=== PATIENT | female | born 1955 | race Caucasian/White ===

== ENCOUNTER → 2016-10-31 | Outpatient (CLI) | payer BC ==
[~2016-10-31] MED LIST: 00186-0372-20 IH; AFRIN NASAL SPR15 M1 NS; ALEVE 220MG220 MG PO; ALLEGRA 180MG180 MG PO; ASPIRIN 32325 MG/TAB PO; ASPIRIN 81M81 MG/TA2 PO; BENADRYL25 M2 PO; BYDUREON PEN2 MG SQ; COZAAR 50MG50 MG/TAB PO; FERROUS SU325 MG/TAB PO; FISH OIL 1000MG1 CAP PO; FLONASEALLERGY NS; GLUCOPHAGE500 MG/TAB PO; JANUVIA 100MG100 MG PO; LASIX 20MG TABL20 MG PO; LASIX 40MG TABL40 MG PO; LOPRESSOR 225 MG/TAB PO; MELATONIN5 M1 PO; NEXIUM 40MG40 MG PO; NITRO-DUR0.3 MG/PAT TD; NO HOME MEDICATIONS; NORCO 325 MG-51 TAB PO; PRILOSEC 20MG20 MG PO; QUALITY CHOI500 U/GM TP; SALINE MIST 4545 ML NS; SINGULAIR 110 MG/TAB PO; VITAMIN C500 MG PO; VOLTAREN GEL 1%1 TU TP; ZEASORB-AF21 TP; ZYRTEC 10MG10 MG PO; [UNRECOGNIZED DRUG - OTHER]; [UNRECOGNIZED DRUG - OTHER] PO
== END ==
LOC: SUN.DIA 08:15
DX: E11.65 Type 2 diabetes mellitus with hyperglycemia (principal); Z71.3 Dietary counseling and surveillance; I10 Essential (primary) hypertension
CPT/HCPCS: G0109

== ENCOUNTER → 2016-11-07 | Outpatient (CLI) | payer BC | LOC: SUN.DIA 14:29 | DX: E11.65 Type 2 diabetes mellitus with hyperglycemia (principal); Z71.3 Dietary counseling and surveillance; I10 Essential (primary) hypertension | CPT/HCPCS: G0109 ==

== ENCOUNTER → 2016-11-14 | Outpatient (CLI) | payer BC | LOC: SUN.DIA 11:58 | DX: E11.65 Type 2 diabetes mellitus with hyperglycemia (principal); Z71.3 Dietary counseling and surveillance; I10 Essential (primary) hypertension | CPT/HCPCS: G0109 ==

== ENCOUNTER 2016-11-21 08:21 | Day surgery (SDC) | payer BC ==
[~2016-11-21] VITALS: Ht 160 cm; Wt 89.9 kg
[~2016-11-21 08:21] MED LIST changes: -00186-0372-20 IH; -AFRIN NASAL SPR15 M1 NS; -ASPIRIN 81M81 MG/TA2 PO; -BENADRYL25 M2 PO; -BYDUREON PEN2 MG SQ; -FERROUS SU325 MG/TAB PO; -FISH OIL 1000MG1 CAP PO; -FLONASEALLERGY NS; -GLUCOPHAGE500 MG/TAB PO; -JANUVIA 100MG100 MG PO; -LASIX 20MG TABL20 MG PO; -NEXIUM 40MG40 MG PO; -NORCO 325 MG-51 TAB PO; -QUALITY CHOI500 U/GM TP; -SALINE MIST 4545 ML NS; -SINGULAIR 110 MG/TAB PO; -VITAMIN C500 MG PO; -VOLTAREN GEL 1%1 TU TP; -ZEASORB-AF21 TP; -ZYRTEC 10MG10 MG PO
[2016-11-21] MEDS ORDERED: LASIX 20MG TABL20 MG PO (08:46)
[2016-11-21] MEDS ORDERED: ASPIRIN 81M81 MG/TA2 PO (08:46)
[2016-11-21] MEDS ORDERED: ZEASORB-AF21 TP (08:50)
[2016-11-21] MEDS ORDERED: VOLTAREN GEL 1%1 TU TP (08:53)
[2016-11-21] MEDS ORDERED: BENADRYL25 M2 PO (08:53)
[2016-11-21] MEDS ORDERED: FLONASEALLERGY NS (08:53)
[2016-11-21] MEDS ORDERED: GLUCOPHAGE500 MG/TAB PO (08:54)
[2016-11-21] MEDS ORDERED: AFRIN NASAL SPR15 M1 NS (08:55)
[2016-11-21] MEDS ORDERED: SALINE MIST 4545 ML NS (08:55)
[2016-11-21] MEDS ORDERED: ZYRTEC 10MG10 MG PO (08:56)
[2016-11-21] MEDS ORDERED: JANUVIA 100MG100 MG PO (08:56)
[2016-11-21] MEDS ORDERED: NORCO 325 MG-51 TAB PO (08:57)
[2016-11-21] MEDS ORDERED: FISH OIL 1000MG1 CAP PO (08:57)
[2016-11-21] MEDS ORDERED: NEXIUM 40MG40 MG PO (08:57)
[2016-11-21] MEDS ORDERED: QUALITY CHOI500 U/GM TP (08:58)
[2016-11-21] MEDS ORDERED: SINGULAIR 110 MG/TAB PO (08:58)
[2016-11-21 09:15] VITALS: BP 148/85; PULSE 102; TEMP 98.2
[2016-11-21 10:30] VITALS: BP 131/62; PULSE 93; TEMP 98
[2016-11-21 10:45] VITALS: BP 134/74; PULSE 108
[2016-11-21 11:00] VITALS: BP 135/76; PULSE 94
[2016-11-21 11:15] VITALS: BP 137/77; PULSE 103
[2016-11-21 12:06] VITALS: BP 140/59; PULSE 93
== END 2016-11-21 11:55 | disposition home or self-care (01) ==
LOC: SDCO 08:21
DX: R06.00 Dyspnea, unspecified (principal); R05 Cough; R06.02 Shortness of breath
CPT/HCPCS: J0456; J2704; J2920; J7030; J7050; J7120

== ENCOUNTER → 2016-11-28 | Outpatient (CLI) | payer BC ==
[~2016-11-28] MED LIST changes: +00186-0372-20 IH; +AFRIN NASAL SPR15 M1 NS; +ASPIRIN 81M81 MG/TA2 PO; +BENADRYL25 M2 PO; +BYDUREON PEN2 MG SQ; +FERROUS SU325 MG/TAB PO; +FISH OIL 1000MG1 CAP PO; +FLONASEALLERGY NS; +GLUCOPHAGE500 MG/TAB PO; +JANUVIA 100MG100 MG PO; +LASIX 20MG TABL20 MG PO; +NEXIUM 40MG40 MG PO; +NORCO 325 MG-51 TAB PO; +QUALITY CHOI500 U/GM TP; +SALINE MIST 4545 ML NS; +SINGULAIR 110 MG/TAB PO; +VITAMIN C500 MG PO; +VOLTAREN GEL 1%1 TU TP; +ZEASORB-AF21 TP; +ZYRTEC 10MG10 MG PO
== END ==
LOC: SUN.DIA
DX: E11.65 Type 2 diabetes mellitus with hyperglycemia (principal); Z68.34 Body mass index [BMI] 34.0-34.9, adult; Z71.3 Dietary counseling and surveillance; I10 Essential (primary) hypertension
CPT/HCPCS: G0108; G0109; J7120

== ENCOUNTER 2017-05-08 12:10 | Day surgery (SDC) | payer BC ==
[2017-05-08] VITALS (8 sets, daily range): BP systolic 118–142; BP diastolic 63–87; PULSE 75–81; TEMP 97.9–98.6
[~2017-05-08] VITALS: Ht 160 cm; Wt 87.6 kg
[~2017-05-08 12:10] MED LIST changes: -00186-0372-20 IH; -BYDUREON PEN2 MG SQ; -FERROUS SU325 MG/TAB PO; -VITAMIN C500 MG PO
[2017-05-08] MEDS ORDERED: 00186-0372-20 IH (13:21)
[2017-05-08] MEDS ORDERED: BYDUREON PEN2 MG SQ (13:23)
[2017-05-08] MEDS ORDERED: SINGULAIR 110 MG/TAB PO (13:25)
[2017-05-08] MEDS ORDERED: FERROUS SU325 MG/TAB PO (13:26)
[2017-05-08] MEDS ORDERED: VITAMIN C500 MG PO (13:28)
== END 2017-05-08 19:55 | disposition home or self-care (01) ==
LOC: SDCO 12:10
DX: N20.1 Calculus of ureter (principal); J44.9 Chronic obstructive pulmonary disease, unspecified; I10 Essential (primary) hypertension; E11.9 Type 2 diabetes mellitus without complications; K21.9 Gastro-esophageal reflux disease without esophagitis; Z79.84 Long term (current) use of oral hypoglycemic drugs; Z83.3 Family history of diabetes mellitus; Z82.49 Family history of ischemic heart disease and other diseases of the circulatory system; Z80.52 Family history of malignant neoplasm of bladder; Z83.6 Family history of other diseases of the respiratory system
CPT/HCPCS: C1769; J1170; J1885; J1956; J2405; J2704; J3010; J7030; Q9967

== ENCOUNTER → 2017-10-09 | Outpatient (CLI) | payer BC ==
[~2017-10-09] MED LIST changes: +00186-0372-20 IH; +BYDUREON PEN2 MG SQ; +FERROUS SU325 MG/TAB PO; +VITAMIN C500 MG PO
== END ==
LOC: MC.RAD 14:08
DX: Z12.31 Encounter for screening mammogram for malignant neoplasm of breast (principal); R92.8 Other abnormal and inconclusive findings on diagnostic imaging of breast

== ENCOUNTER → 2017-11-08 | Outpatient (CLI) | payer BC | LOC: MC.RAD 12:51 | DX: N63.20 Unspecified lump in the left breast, unspecified quadrant (principal); N63.10 Unspecified lump in the right breast, unspecified quadrant; N64.89 Other specified disorders of breast ==

== ENCOUNTER → 2017-11-19 | Outpatient (CLI) | payer BC | LOC: MC.RAD 06:58 | DX: N63.11 Unspecified lump in the right breast, upper outer quadrant (principal); N63.21 Unspecified lump in the left breast, upper outer quadrant; N64.89 Other specified disorders of breast ==

== ENCOUNTER → 2019-07-09 | Outpatient (CLI) | payer MEDICARE, OTHER | LOC: MC.RAD 10:21 | DX: Z12.31 Encounter for screening mammogram for malignant neoplasm of breast (principal); N63.21 Unspecified lump in the left breast, upper outer quadrant ==

== ENCOUNTER 2019-11-13 09:33 | Day surgery (SDC) | payer MEDICARE, OTHER ==
[2019-11-13] VITALS (12 sets, daily range): BP systolic 99–146; BP diastolic 58–88; PULSE 69–79; TEMP 97.7
[~2019-11-13] VITALS: Ht 160 cm; Wt 86.9 kg
[~2019-11-13 09:33] MED LIST changes: +GLUCOPHAGE1000 MG PO; -GLUCOPHAGE500 MG/TAB PO
[2019-11-13 10:29] LABS: HEMATOCRIT 37.7 % (37.0-47.0); HEMOGLOBIN 12.2 g/dl (12.5-16.0); MEAN CELL VOLUME 92 fl (80.0-100.0); MEAN CORPUSCULAR HEMOGLOBIN 30 pg (27.0-31.0); MEAN CORPUSCULAR HGB CONC 32 g/dl (33.0-37.0); MEAN PLATELET VOLUME 9.1 fl (7.4-10.4); PLATELET COUNT 298 K/mm3 (130-400); RED BLOOD COUNT 4.11 M/mm3 (4.10-5.30); REDCELL DISTRIBUTION WIDTH-CV 14.6 % (11.5-14.5)
[2019-11-13 10:31] LABS: PROTHROMBIN TIME 11.8 SECONDS (9.7-12.8)
[2019-11-13 10:38] LABS: CALCIUM 8.5 mg/dL (8.4-10.2); CREATININE, serum 0.68 (0.52-1.25); POTASSIUM 3.3 mmol/L (3.4-5.0)
[2019-11-13] MEDS ORDERED: LIPITOR20 MG PO (11:06)
[2019-11-13] MEDS ORDERED: WELLBUTRIN XL150 MG PO (11:07)
[2019-11-13] MEDS ORDERED: ZYLOPRIM 100MG100 MG PO (11:08)
[2019-11-13] MEDS ORDERED: PROZAC 10MG10 MG PO (11:08)
[2019-11-13] MEDS ORDERED: GLUCOTROL 5M5 MG/TAB PO (11:10)
[2019-11-13] MEDS ORDERED: NEURONTIN100 MG/CAP PO (11:10)
[2019-11-13] MEDS ORDERED: MOBIC15 MG PO (11:11)
--- NOTE | 2019-11-13 11:38 | NUR ---
Pt to procedure
--- NOTE | 2019-11-13 11:42 | NUR ---
SEE MERGE FOR MEDICATION ADMINISTRATION TIMES AND INTRA AND POST SEDATION ASSESMENTS.
--- NOTE | 2019-11-13 17:27 | NUR ---
Discharge instructions given to pt.Pt verbalizes understanding.INT removed,catheter tip intact.pt escorted out via wheelchair by this nurse.
== END 2019-11-13 17:28 | disposition home or self-care (01) ==
LOC: COL.CAR 09:33
PROVIDERS: Internal Medicine Cardiovascular Disease
DX: I25.110 Atherosclerotic heart disease of native coronary artery with unstable angina pectoris (principal); R94.39 Abnormal result of other cardiovascular function study; K76.0 Fatty (change of) liver, not elsewhere classified; E11.42 Type 2 diabetes mellitus with diabetic polyneuropathy; K21.9 Gastro-esophageal reflux disease without esophagitis; I11.0 Hypertensive heart disease with heart failure; I50.9 Heart failure, unspecified; E66.9 Obesity, unspecified; G47.33 Obstructive sleep apnea (adult) (pediatric); J84.10 Pulmonary fibrosis, unspecified; E78.2 Mixed hyperlipidemia; Z87.891 Personal history of nicotine dependence; Z82.49 Family history of ischemic heart disease and other diseases of the circulatory system; Z91.048 Other nonmedicinal substance allergy status; Z88.0 Allergy status to penicillin; Z88.2 Allergy status to sulfonamides; Z88.8 Allergy status to other drugs, medicaments and biological substances; Z79.82 Long term (current) use of aspirin; Z79.84 Long term (current) use of oral hypoglycemic drugs; Z68.34 Body mass index [BMI] 34.0-34.9, adult
CPT/HCPCS: J1644; J2250; J3010; Q9967

== ENCOUNTER 2022-03-08 06:46 | Day surgery (SDC) | payer MEDICARE, OTHER ==
[~2022-03-08] VITALS: Ht 160 cm; Wt 79.4 kg
[2022-03-08] VITALS (12 sets, daily range): BP systolic 112–149; BP diastolic 62–91; PULSE 60–73; TEMP 98.1
[~2022-03-08 06:46] MED LIST changes: +GLUCOTROL 5M5 MG/TAB PO; +LIPITOR20 MG PO; +MOBIC15 MG PO; +NEURONTIN100 MG/CAP PO; +PROZAC 10MG10 MG PO; +WELLBUTRIN XL150 MG PO; +ZYLOPRIM 100MG100 MG PO
[2022-03-08 07:35] LABS: PROTHROMBIN TIME 11.8 SECONDS (9.7-12.8)
[2022-03-08 07:36] LABS: HEMATOCRIT 39.1 % (37.0-47.0); HEMOGLOBIN 12.7 g/dl (12.5-16.0); MEAN CELL VOLUME 89 fl (80.0-100.0); MEAN CORPUSCULAR HEMOGLOBIN 29 pg (27-31); MEAN CORPUSCULAR HGB CONC 33 g/dl (33.0-37.0); MEAN PLATELET VOLUME 9.2 fl (7.4-10.4); PLATELET COUNT 332 K/mm3 (130-400); RED BLOOD COUNT 4.38 M/mm3 (4.10-5.30); REDCELL DISTRIBUTION WIDTH-CV 14.6 % (11.5-14.5)
[2022-03-08 07:38] LABS: PARTIAL THROMBOPLASTIN TIME 30.5 SECONDS (26.0-37.0)
[2022-03-08] MEDS ORDERED: REGLAN 5MG T5 MG/TAB PO (07:40)
[2022-03-08 07:41] LABS: CALCIUM 8.7 mg/dL (8.4-10.2); CREATININE, serum 0.76 mg/dL (0.57-1.11); POTASSIUM 3.8 mmol/L (3.5-4.5)
[2022-03-08] MEDS ORDERED: DESYREL 50MG50 MG PO (07:42)
[2022-03-08] MEDS ORDERED: MULTI VITAMINS1 TAB PO (07:42)
[2022-03-08] MEDS ORDERED: ZYRTEC5 MG PO (07:43)
--- NOTE | 2022-03-08 09:19 | NUR ---
PATIENT ALERT AND ORIENTED. CONSENT VERIFIED. SEE MERGE FOR CATH DOCUMENTATION INCLUDING VS, HEMODYNAMIC MONTIORING WELL MEDICATION ADMINISTRATION. FAMILY IN WAITING ROOM.
[2022-03-08] MEDS ORDERED: LIPITOR 80MG80 MG PO (11:26)
--- NOTE | 2022-03-08 15:00 | NUR ---
Pt escorted out via wheelchair Fabián Calabrese.
== END 2022-03-08 18:02 ==
LOC: COL.CAR 06:46
PROVIDERS: Internal Medicine Cardiovascular Disease
DX: I25.110 Atherosclerotic heart disease of native coronary artery with unstable angina pectoris (principal)
CPT/HCPCS: C1769; J1644; J2250; J3010